=== PATIENT | female | born 1940 | race Caucasian/White ===

== ENCOUNTER → 2018-02-20 16:31 | Outpatient (CLI) | payer MEDICARE, OTHER, SELFPAY ==
--- NOTE | 2018-02-20 | DI.MRI.S_ITS ---
PROCEDURE: MR CERVICAL SPINE WO CON INDICATIONS: Bialteral hand numbness TECHNIQUE: Noncontrast sagittal T1 spin echo and T2 fast spin echo, sagittal STIR, foraminal oblique sagittal T2 fast spin echo, and axial gradient echo or T2 fast spin echo through the cervical spine. COMPARISON: [facility], MR, T-SPINE WITHOUT CONTRAST, 03/08/2016, 16:38. [facility], RG, XR C-SPINE 2-3V, 12/10/2004, 11:31. FINDINGS: Image quality: Excellent. Alignment and Curvature: There is normal bony alignment. Bone Marrow: Marrow demonstrates normal overall signal. Spinal Cord: Visualized spinal cord has normal size and signal. No cerebellar tonsillar herniation. Paraspinous Soft Tissues: No paravertebral masses. Prevertebral soft tissues are normal in thickness. C2-C3: Mild disc desiccation with preserved disc height. No central canal or foraminal stenosis. C3-C4: Mild loss of disc height and disc desiccation. There is diffuse posterior disc bulge and uncovertebral hypertrophy. Moderate bilateral facet arthropathy. The central canal is patent. Severe right foraminal stenosis. No left foraminal stenosis. C4-C5: Mild loss of disc height and disc desiccation. There is mild posterior disc bulge. Moderate bilateral facet arthropathy. The central canal is patent. Mild bilateral foraminal stenosis. C5-C6: Preserved disc height. Mild disc desiccation. There is mild posterior disc bulge and disc osteophyte complex. Moderate left and mild right facet arthropathy. The central canal is patent. Mild bilateral foraminal stenosis. C6-C7: Preserved disc height. Mild disc desiccation. There is mild posterior disc bulge and disc osteophyte complex and uncovertebral hypertrophy. Mild bilateral facet arthropathy. The central canal is patent. No foraminal stenosis. C7-T1: Normal appearance. IMPRESSION: 1. Multilevel degenerative disc disease and facet arthropathy as described. 2. No significant central canal stenosis. 3. Multilevel foraminal stenosis as described, severe at C3-C4 on the right. Dictated by: Elham Lambert M.D. on 02/21/2018 at 10:03 Approved by: Elham Lambert M.D. on 02/21/2018 at 18:07
== END ==
PROVIDERS: Family Provider Nurse Practitioner Family; PCP Nurse Practitioner Family; Visit Provider Physical Medicine & Rehabilitation
DX: M50.31 Other cervical disc degeneration, high cervical region (principal); M48.02 Spinal stenosis, cervical region; R20.0 Anesthesia of skin
CPT/HCPCS: 72141

== ENCOUNTER → 2018-03-09 14:38 | Outpatient (CLI) | payer MEDICARE, OTHER, SELFPAY | PROVIDERS: Family Provider Nurse Practitioner Family; PCP Nurse Practitioner Family; Visit Provider Nurse Practitioner Family | DX: M85.88 Other specified disorders of bone density and structure, other site (principal); Z78.0 Asymptomatic menopausal state; E07.9 Disorder of thyroid, unspecified; Z87.891 Personal history of nicotine dependence; Z90.722 Acquired absence of ovaries, bilateral | CPT/HCPCS: 77080 ==

== ENCOUNTER → 2019-05-14 10:32 | Outpatient (CLI) | payer MEDICARE, OTHER, SELFPAY ==
--- NOTE | 2019-05-14 | DI.US.S_ITS ---
PROCEDURE: US CAROTID DOPPLER BI INDICATIONS: DIZZINESS AND GIDDINESS TECHNIQUE: Color and pulse Doppler interrogation was performed of both carotid systems, with image documentation and velocity measurements. COMPARISON: [facility], , CAROTID ARTERY DOPPLER BILAT, 07/19/2016, 10:23. FINDINGS: Stenosis calculations are based on SRU (Society of Radiologists in Ultrasound) criteria. Right side: Brachial blood pressure: 135/71 mm Hg. Common carotid artery peak systolic velocity: 97 cm/sec. Internal carotid artery peak systolic velocity: 103 cm/sec. Internal carotid artery end diastolic velocity: 44 cm/sec. External carotid artery peak systolic velocity: 72 cm/sec. ICA/CCA peak systolic ratio: 1.1. Hurtado scale imaging description: Minimal scattered plaque. Percent internal carotid artery stenosis: Less than 50%. Vertebral artery: Flow direction is antegrade. Left side: Brachial blood pressure: 130/71 mm Hg. Common carotid artery peak systolic velocity: 78 cm/sec. Internal carotid artery peak systolic velocity: 111 cm/sec. Internal carotid artery end diastolic velocity: 47 cm/sec. External carotid artery peak systolic velocity: 54 cm/sec. ICA/CCA peak systolic ratio: 1.4. Hurtado scale imaging description: Minimal scattered plaque. Percent internal carotid artery stenosis: Less than 50%. Vertebral artery: Flow direction is antegrade. IMPRESSION: Stable less than 50% bilateral internal carotid artery stenosis. Dictated by: Vamsi Morel [facility] Interpreted: Lito Spicer MD on 05/14/2019 at 12:28 Approved by: Lito Spicer M.D. on 05/14/2019 at 13:32
== END ==
PROVIDERS: PCP Nurse Practitioner Family; Visit Provider Nurse Practitioner Family
DX: R42 Dizziness and giddiness (principal); I65.23 Occlusion and stenosis of bilateral carotid arteries
CPT/HCPCS: 93880

== ENCOUNTER → 2020-03-06 14:09 | Outpatient (CLI) | payer MEDICARE, OTHER, SELFPAY | PROVIDERS: PCP Internal Medicine; Referring Provider Internal Medicine; Visit Provider Internal Medicine | DX: M81.0 Age-related osteoporosis without current pathological fracture (principal); Z78.0 Asymptomatic menopausal state; E07.9 Disorder of thyroid, unspecified; Z90.722 Acquired absence of ovaries, bilateral | CPT/HCPCS: 77080 ==

== ENCOUNTER → 2020-03-24 08:05 | Outpatient (CLI) | payer MEDICARE, OTHER, SELFPAY ==
--- NOTE | 2020-03-24 | DI.MG.S_ITS ---
BILATERAL DIGITAL SCREENING MAMMOGRAM 3D/2D WITH CAD: 03/24/2020 CLINICAL: Routine screening. Family history of breast cancer. Comparison is made to exams dated: 01/15/2016 mammogram - [facility], 12/21/2011 mammogram, 04/18/2009 mammogram, 04/14/2007 mammogram - [facility], and 01/22/2016 mammogram - [facility]. The tissue of both breasts is heterogeneously dense. This may lower the sensitivity of mammography. Current study was also evaluated with a Computer Aided Detection (CAD) system. No significant masses, calcifications, or other findings are seen in either breast. There has been no significant interval change. IMPRESSION: NEGATIVE There is no mammographic evidence of malignancy. A 1 year screening mammogram is recommended. This exam was interpreted at Station ID: [id number]. NOTE: For mammograms, a report in lay terms will be sent to the patient. Approximately 15% of breast malignancies will not be visualized mammographically. In the management of a palpable breast mass, a negative mammogram must not discourage biopsy of a clinically suspicious lesion. Electronically Signed By: Wilfrid flores/zackery:03/24/2020 17:25:23 letter sent: Normal Exam ACR BI-RADS Category 1: Negative [id number]
== END ==
PROVIDERS: PCP Internal Medicine; Referring Provider Internal Medicine; Visit Provider Internal Medicine
DX: Z12.31 Encounter for screening mammogram for malignant neoplasm of breast (principal); Z80.3 Family history of malignant neoplasm of breast
CPT/HCPCS: 77063; 77067

== ENCOUNTER → 2023-01-29 11:03 | Outpatient (CLI) | payer MEDICARE, OTHER, SELFPAY ==
--- NOTE | 2023-01-29 11:22 | DI.MRI.S_ITS ---
PROCEDURE: MR HIP LT WO CON INDICATIONS: Pain in left hip TECHNIQUE: Noncontrast coronal T1 spin echo and STIR through the bony pelvis. Coronal and axial T2 fast spin echo with fat saturation, sagittal T1 spin echo, and oblique axial T2 fast spin echo with fat saturation through the hip. COMPARISON: None. FINDINGS: Image quality: Excellent. Bones and joints: Bone marrow of the pelvic ring and proximal femurs show normal signal throughout. No intraosseous lesions or fractures. No avascular necrosis of the femoral heads. Degenerative disc disease and facet hypertrophy as well scoliotic curvature is seen in the included lumbar spine. Mild degenerative changes at the pubic symphysis. Tendons and ligaments: Fluid signal intensity is seen along the posterior left gluteus minimus and anterior gluteus medius tendons near their insertion onto the greater trochanter with associated trochanteric and subgluteal bursal effusions. Findings are superimposed on chronic tendinosis. Mild intramuscular edema is seen within the left gluteus minimus and medius muscles. The proximal iliotibial band appears intact. The iliopsoas tendon appears intact, without adjacent bursal fluid collections. The origin of the hamstring tendon is intact at the ischial tuberosity. The direct and indirect heads of the rectus femoris muscle origin appear intact. Labrum and cartilage: There is diffuse labral degeneration and chronic degenerative tearing. Mild partial-thickness cartilage irregularity is seen in the superior to posterior hip. There is normal morphology of the femoral head and the acetabulum. Soft tissues: Visualized muscles demonstrate normal bulk and internal signal. Quadratus femoris muscle demonstrates no internal edema to suggest ischiofemoral impingement. The proximal sciatic neurovascular bundle appears intact. Status post hysterectomy. The included portions of the pelvis demonstrate no acute abnormality. IMPRESSION: 1. Moderate partial tearing of the distal left gluteus minimus and medius tendons near their insertions onto the greater trochanter with associated trochanteric and subgluteal bursal effusions. 2. Mild edema within the gluteus medius and minimus muscles is consistent with superimposed low-grade strains. 3. 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 Mild diffuse labral degeneration and chronic degenerative tearing. Approved by: Olman Raymond M.D. on 01/31/2023 at 10:46
== END ==
PROVIDERS: PCP Internal Medicine; Referring Provider Physical Medicine & Rehabilitation Pain Medicine; Visit Provider Physical Medicine & Rehabilitation Pain Medicine
DX: M54.16 Radiculopathy, lumbar region (principal); S76.312A Strain of muscle, fascia and tendon of the posterior muscle group at thigh level, left thigh, initial encounter; S73.102A Unspecified sprain of left hip, initial encounter; M25.552 Pain in left hip; M94.252 Chondromalacia, left hip
CPT/HCPCS: 73721

== ENCOUNTER → 2023-03-25 10:13 | Outpatient (CLI) | payer MEDICARE, OTHER, SELFPAY ==
--- NOTE | 2023-03-25 10:15 | DI.US.S_ITS ---
PROCEDURE: US ABDOMEN COMPLETE INDICATIONS: GENERALIZED ABDOMINAL PAIN TECHNIQUE: Real-time scanning was performed of the abdominal and retroperitoneal organs, with image documentation. COMPARISON: [facility], US, ABDOMEN COMPLETE, 09/27/2006, 8:30. FINDINGS: Liver: Liver is normal in size and homogeneous in echotexture. Gallbladder: The gallbladder is normal without stones, sludge, wall thickening, or pericholecystic fluid. Biliary ducts: Intrahepatic bile ducts are non-dilated. Extrahepatic bile duct caliber measures 3.9 mm. Normal is 6-7 mm or less in diameter, or 10 mm or less post-cholecystectomy. Pancreas: Visualized portions of the pancreas are sonographically normal. Spleen: Spleen is normal in size and homogeneous in echotexture. Kidneys: Kidneys are normal in size and echotexture. Mild prominence of renal sinus fat. Right kidney measures 9.6 cm long; left kidney is suboptimally seen due to lack of good acoustic window. No hydronephrosis or nephrolithiasis. No solid masses. Aorta: Visualized aorta is normal in caliber at less than 3 cm. Iliacs: Proximal common iliac arteries are normal in caliber at less than 2.5 cm. IVC: Intrahepatic inferior vena cava is patent. Miscellaneous: No free abdominal fluid. IMPRESSION: 1. Decreased visualization of the left kidney in spleen due to lack of good acoustic window. 2. Mild prominence of the renal sinus fat bilaterally may indicate mild cortical thinning versus senescent changes. No other sonographic sign of renal pathology. 3. Normal gallbladder. Dictated by: Camelia Lockett M.D. on 03/25/2023 at 15:55 Approved by: Camelia Lockett M.D. on 03/25/2023 at 15:58
== END ==
PROVIDERS: PCP Internal Medicine; Referring Provider Internal Medicine; Visit Provider Internal Medicine
DX: R10.84 Generalized abdominal pain (principal); R19.7 Diarrhea, unspecified
CPT/HCPCS: 76700

== ENCOUNTER → 2023-07-20 08:44 | Outpatient (CLI) | payer MEDICARE, OTHER, SELFPAY ==
--- NOTE | 2023-07-20 | DI.US.S_ITS ---
PROCEDURE: US CAROTID DOPPLER BI INDICATIONS: Occlusion and stenosis of unspecified carotid artery TECHNIQUE: Color and pulse Doppler interrogation was performed of both carotid systems, with image documentation and velocity measurements. COMPARISON: [facility], , US CAROTID DOPPLER BI, 05/14/2019, 11:02. FINDINGS: Stenosis calculations are based on SRU (Society of Radiologists in Ultrasound) criteria. Right side: Brachial blood pressure: 155/79 mm Hg. Common carotid artery peak systolic velocity: 53 cm/sec. Internal carotid artery peak systolic velocity: 60 cm/sec. Internal carotid artery end diastolic velocity: 25 cm/sec. External carotid artery peak systolic velocity: 56 cm/sec. ICA/CCA peak systolic ratio: 1.1. Hurtado scale imaging description: There is mild atheromatous plaque at the bulb. Percent internal carotid artery stenosis: Less than 50% stenosis. Vertebral artery: Flow direction is antegrade. Left side: Brachial blood pressure: 158/75 mm Hg. Common carotid artery peak systolic velocity: 65 cm/sec. Internal carotid artery peak systolic velocity: 84 cm/sec. Internal carotid artery end diastolic velocity: 33 cm/sec. External carotid artery peak systolic velocity: 44 cm/sec. ICA/CCA peak systolic ratio: 1.3 . Hurtado scale imaging description: No atheromatous plaque or calcification. Percent internal carotid artery stenosis: No stenosis. Vertebral artery: Flow direction is antegrade. IMPRESSION: 1. Less than 50% stenosis the right carotid artery. 2. No stenosis of the left internal carotid artery. Dictated by: Miranda Hartman M.D. on 07/20/2023 at 9:30 Approved by: Miranda Hartman M.D. on 07/20/2023 at 9:34
== END ==
PROVIDERS: PCP Internal Medicine; Referring Provider Internal Medicine; Visit Provider Internal Medicine
DX: I65.21 Occlusion and stenosis of right carotid artery (principal)
CPT/HCPCS: 93880

== ENCOUNTER → 2023-12-28 12:28 | Outpatient (CLI) | payer MEDICARE, OTHER, SELFPAY ==
--- NOTE | 2023-12-28 12:34 | DI.MRI.S_ITS ---
PROCEDURE: MR LUMBAR SPINE WO CON INDICATIONS: Other specified spondylopathies, lumbar region TECHNIQUE: Noncontrast sagittal T1 spin echo and T2 fast echo, sagittal STIR, and T2 fast spin echo through the lumbar spine. In cases with scoliosis, additional coronal T2 fast spin echo may be performed. COMPARISON: [facility], , L-SPINE WITHOUT CONTRAST, 03/08/2016, 17:02. FINDINGS: Image quality: Excellent. Alignment and Curvature: Dextroscoliotic curvature of the lumbar spine. Right lateral listhesis of L3 on L4. Straightening of the normal lumbar lordosis. Bone Marrow: Degenerative endplate changes, most pronounced at L4-5. Marrow is of normal overall signal. No acute vertebral body compression fractures. Spinal Cord: Conus medullaris terminates at the L1 level. Visualized cord demonstrates normal signal and size. Paraspinous Soft Tissues: No paravertebral masses. T12-L1: Disc desiccation and height loss. No central canal or neural foraminal stenosis. L1-L2: Disc desiccation and mild disc bulge. Facet arthropathy. No central canal or neural foraminal stenosis. L2-L3: Disc desiccation and height loss. Posterior disc bulge. Facet arthropathy. Stable mild central canal stenosis. Stable mild bilateral neural foraminal stenosis. L3-L4: Disc desiccation and height loss. Facet arthropathy. Thickening of ligamentum flavum. Stable mild central canal stenosis. Stable mild bilateral neural foraminal stenosis. L4-L5: Severe disc desiccation and height loss. Facet arthropathy and thickening of ligamentum flavum. No significant central canal stenosis. Stable moderate right and mild left neural foraminal stenosis. L5-S1: Disc desiccation and height loss. Posterior disc bulge. Small disc extrusion appears decreased compared to prior. Small posterior annular tear. Facet arthropathy and thickening ligamentum flavum. Stable mild central canal stenosis. No significant neural foraminal stenosis. IMPRESSION: 1. Overall similar appearance of degenerative changes of the lumbar spine with dextroscoliotic curvature. 2. Mild multilevel central canal stenosis. 3. Moderate right neural foraminal stenosis at L4-5. Mild multilevel neural foraminal stenosis at other levels. Dictated by: Ori Blanca M.D. on 12/28/2023 at 15:51 Approved by: Ori Blanca M.D. on 12/28/2023 at 15:58
== END ==
PROVIDERS: PCP Internal Medicine; Referring Provider Internal Medicine; Visit Provider Internal Medicine
DX: M48.8X6 Other specified spondylopathies, lumbar region (principal); M47.816 Spondylosis without myelopathy or radiculopathy, lumbar region; M47.817 Spondylosis without myelopathy or radiculopathy, lumbosacral region; M48.061 Spinal stenosis, lumbar region without neurogenic claudication; M48.07 Spinal stenosis, lumbosacral region; M51.36 Other intervertebral disc degeneration, lumbar region; M53.3 Sacrococcygeal disorders, not elsewhere classified; G89.29 Other chronic pain
CPT/HCPCS: 72148

== ENCOUNTER 2025-01-05 07:03 | Emergency (ER) | payer MEDICARE, OTHER, SELFPAY ==
[2025-01-05] VITALS (13 sets, daily range): BP systolic 167–200; BP diastolic 72–91; PULSE 59–92; RESP 18–20; TEMP 36.6; O2SAT 81–99; BMI 21.4
--- NOTE | 2025-01-05 07:41 | ED.ABDPAIN ---
HPI - Abdominal Pain General Chief Complaint: Abdominal Pain Stated Complaint: Constipated in pain x3 days Time Seen by Provider: 01/05/25 07:24 Source: patient Mode of arrival: Ambulatory History of Present Illness HPI narrative: 84-year-old female history of hypertension atrial fibrillation seen most recently at [facility] for a pit bull attack resulting in ulna fracture on pain medicine presents with abdominal pain and constipation last bowel movement was Tuesday despite taking 3 suppositories last night unable to have a bowel movement at this time secondary to pain medicine given for fracture. Patient denies fever chills chest pain shortness of breath but does feel nauseous but no vomiting or diarrhea or blood in the stools or urine. Other than what is stated 14 point review of system is negative Related Data Home Medications ?Medication ?Instructions ?Recorded ?Confirmed apixaban 5 mg tablet (Eliquis) 5 mg PO BID 01/03/25 01/03/25 atorvastatin 20 mg tablet (Lipitor) 20 mg PO DAILY 01/03/25 01/03/25 gabapentin 300 mg capsule 300 mg PO DAILY 01/03/25 01/03/25 levothyroxine 50 mcg capsule 50 mcg PO DAILY 01/03/25 01/03/25 metoprolol succinate 25 mg 25 mg PO DAILY 01/03/25 01/03/25 tablet,extended release 24 hr midodrine 5 mg tablet 5 mg PO TID 01/03/25 01/03/25 pantoprazole 40 mg tablet,delayed 40 mg PO DAILY 01/03/25 01/03/25 release telmisartan 20 mg tablet (Micardis) 20 mg PO DAILY 01/03/25 01/03/25 Previous Rx's ?Medication ?Instructions ?Recorded lactulose 10 gram/15 mL oral 10 g (15 mL) PO DAILY PRN 01/05/25 solution constipation #473 mL Allergies Allergy/AdvReac Type Severity Reaction Status Date / Time codeine Allergy Unknown NAUSEA Verified 01/05/25 08:22 Review of Systems Review of Systems ROS Unobtainable: All systems reviewed & are unremarkable except as noted in HPI and below Patient History Social History Smoking Status: Never smoker Smoking Status: Never smoker Exam Narrative Exam Narrative: GENERAL: [84] year old patient appears stated age. Well-developed patient, in mild distress. HEAD: Atraumatic. Normocephalic. EYES: Pupils equal round and reactive. Extraocular motions intact. No scleral icterus. No injection or drainage. GASTROINTESTINAL: Abdomen soft, non-tender, nondistended. Rectal: no external hemorrhoids seen or fissure but stool in the rectal vault manually disimpacted EXTREMITIES: No edema or joint tenderness. BACK: Nontender without deformity or crepitance. No flank tenderness. NEURO: AOx3. SKIN: No rash or erythema of visible areas Initial Vital Signs Initial Vital Signs: Vital Signs Pulse Rate 91 H 01/05/25 07:18 Pulse Oximetry 98 01/05/25 07:18 Course Orders Ordered: ED Orders 01/05/25 07:15 Complete Blood Count AUTO DIFF Stat Comprehensive Metabolic Panel Stat Lipase Stat EKG-12 Lead Stat 01/05/25 08:54 CT abdomen pelvis wo con Stat Ondansetron HCl (Ondansetron 4 Mg/2 Ml Inj) 4 mg IV NOW PRN PRN Reason: Nausea And Vomiting Ondansetron HCl (Ondansetron 4 Mg Odt) 4 mg PO NOW PRN PRN Reason: Nausea And Vomiting Discontinued Medications Sodium Biphosphate/Sodium Phosphate (Fleets Enema) 1 each TX NOW ONE Stop: 01/05/25 07:50 Last Admin: 01/05/25 08:23 Dose: 1 each Documented By: MELISSA Sodium Biphosphate/Sodium Phosphate (Fleets Enema) 1 each TX NOW ONE Stop: 01/05/25 10:29 Last Admin: 01/05/25 11:18 Dose: 1 each Documented By: MELISSA Vital Signs Vital signs: Vital Signs - 8 hr 01/05/25 07:18 01/05/25 07:19 01/05/25 07:30 Temperature 97.8 F Pulse Rate 91 H 92 H Respiratory Rate 20 Blood Pressure 184/79 H 195/81 H Pulse Oximetry 98 98 Oxygen Delivery Method Room Air 01/05/25 07:30 01/05/25 09:18 01/05/25 09:30 Temperature Pulse Rate 85 85 81 Respiratory Rate Blood Pressure Pulse Oximetry 97 97 99 Oxygen Delivery Method 01/05/25 09:30 01/05/25 09:46 01/05/25 09:46 Temperature Pulse Rate 83 Respiratory Rate Blood Pressure 200/91 H 167/72 H Pulse Oximetry 98 Oxygen Delivery Method MDM - Abdominal Pain Imaging Data CT scan - abdomen/pelvis: Radiologist's Impression: [address] [address] [address] Scan Report Signed Patient: Vannesa Contreras MR#: [id number] : 1940 Acct:[id number] Age/Sex: 84 / F Date of Service: 01/05/25 Loc: ED Accession Number: [id number] Procedure: CT abdomen pelvis wo con Ordering Provider: Adryan Morales D.O. PROCEDURE: CT ABDOMEN PELVIS WO CON INDICATIONS: abd pain constipation TECHNIQUE: After the administration of oral contrast, 5 mm thick sections acquired from the diaphragms to the symphysis. 5 mm coronal and sagittal reformats were performed. For radiation dose reduction, the following was used: automated exposure control, adjustment of mA and/or kV according to patient size. COMPARISON: None. FINDINGS: Image quality: Diagnostic. Lower Chest: No significant findings. ABDOMEN: Liver: No contour-deforming mass. Left renal cyst Gallbladder: No radiopaque gallstones or wall thickening. Biliary ducts: No biliary dilation. Pancreas: No ductal dilation. Spleen: Size is within normal limits. Adrenal Glands: No adrenal nodules. Kidneys and Ureters: No hydronephrosis. No contour-deforming mass. Stomach and Bowel: Large fecal bolus in the rectum with upstream fecal retention and perirectal edema Peritoneum: No abnormal intraperitoneal fluid. No free air. Ventral Wall: No significant hernia. Abdominal Nodes: No retroperitoneal or mesenteric adenopathy by size criteria. Vessels: Aorta and inferior vena cava are normal in size. PELVIS: Pelvic Organs: Unremarkable. Bladder: Unremarkable. Pelvic Nodes: No enlarged lymph nodes. Miscellaneous: No inguinal hernias are seen. Bones: Convex right thoracolumbar scoliosis IMPRESSION: Large fecal bolus in the rectum associated with perirectal edema upstream fecal retention MDM Narrative Medical decision making narrative: All lab work, vital signs, nurse triage note, medication list, previous ER visits, and all imaging reviewed. CT scan showed a large fecal bolus in the rectum associated with perirectal edema upstream fecal retention. patient had several bowel movements since enemas were given and feels much better on reexamination. Patient will be discharged on lactulose as needed for constipation. Differential diagnosis includes fecal impaction, constipation, UTI, small-bowel obstruction. Discharge Plan Departure Patient Disposition: Home Clinical Impression: Constipation Instructions: DI for Constipation Activity Restrictions/Additional Instructions: Return with new or worsening symptoms. Take your medicines as directed. Keep hydrated. Follow up with PCP next week if no improvement in symptoms Prescriptions: New lactulose 10 gram/15 mL solution 10 g PO DAILY PRN (Reason: constipation) Qty: 473 0RF No Action atorvastatin [Lipitor] 20 mg tablet 20 mg PO DAILY midodrine 5 mg tablet 5 mg PO TID Rx Instructions: do not give last dose of day after 6PM or within 4 hrs of bedtime pantoprazole 40 mg tablet,delayed release (DR/EC) 40 mg PO DAILY gabapentin 300 mg capsule 300 mg PO DAILY telmisartan [Micardis] 20 mg tablet 20 mg PO DAILY metoprolol succinate 25 mg tablet extended release 24 hr 25 mg PO DAILY levothyroxine 50 mcg capsule 50 mcg PO DAILY Eliquis 5 mg tablet 5 mg PO BID Referrals: Rayna Paris ARNP [Primary Care Provider, Family Practice] Stand Alone Forms: Patient Portal/API
[2025-01-05] MEDS: FLEETS ENEMA 1 EACH PR ×2 (08:23→11:18)
--- NOTE | 2025-01-05 08:54 | DI.CT.S_ITS ---
PROCEDURE: CT ABDOMEN PELVIS WO CON INDICATIONS: abd pain constipation TECHNIQUE: After the administration of oral contrast, 5 mm thick sections acquired from the diaphragms to the symphysis. 5 mm coronal and sagittal reformats were performed. For radiation dose reduction, the following was used: automated exposure control, adjustment of mA and/or kV according to patient size. COMPARISON: None. FINDINGS: Image quality: Diagnostic. Lower Chest: No significant findings. ABDOMEN: Liver: No contour-deforming mass. Left renal cyst Gallbladder: No radiopaque gallstones or wall thickening. Biliary ducts: No biliary dilation. Pancreas: No ductal dilation. Spleen: Size is within normal limits. Adrenal Glands: No adrenal nodules. Kidneys and Ureters: No hydronephrosis. No contour-deforming mass. Stomach and Bowel: Large fecal bolus in the rectum with upstream fecal retention and perirectal edema Peritoneum: No abnormal intraperitoneal fluid. No free air. Ventral Wall: No significant hernia. Abdominal Nodes: No retroperitoneal or mesenteric adenopathy by size criteria. Vessels: Aorta and inferior vena cava are normal in size. PELVIS: Pelvic Organs: Unremarkable. Bladder: Unremarkable. Pelvic Nodes: No enlarged lymph nodes. Miscellaneous: No inguinal hernias are seen. Bones: Convex right thoracolumbar scoliosis IMPRESSION: Large fecal bolus in the rectum associated with perirectal edema upstream fecal retention Approved by: Papo Lugo M.D. on 01/05/2025 at 9:00
--- NOTE | 2025-01-05 12:03 | PC.NURSE ---
patient states she didn't take her blood pressure meds this morning but will when she gets home.
== END 2025-01-05 12:04 | disposition home or self-care (01) ==
PROVIDERS: Emergency Provider Family Medicine; PCP Registered Nurse
DX: K59.00 Constipation, unspecified (principal)
CPT/HCPCS: 74176; 99282; 99284

== ENCOUNTER → 2025-04-19 15:27 | Outpatient (CLI) | payer MEDICARE, OTHER, SELFPAY ==
--- NOTE | 2025-04-19 15:32 | DI.MRI.S_ITS ---
PROCEDURE: MR WRIST RT WO CON INDICATIONS: nerve damage TECHNIQUE: Noncontrast coronal proton density fast spin echo and T2 fast spin echo with fat saturation; coronal 3-D gradient echo, axial T1 spin echo and T2 fast spin echo with fat saturation, sagittal T1 spin echo through the wrist. COMPARISON: [facility], MR, MR FOREARM RT WO CON, 04/19/2025, 16:32. [facility], CR, XR WRIST RT MIN 3V, 02/05/2025, 10:35. FINDINGS: Image quality: Excellent. Bones and cartilage: The carpal bones are normally aligned. 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 There are large peripheral osteophytes. Capsular degeneration scarring of the thumb carpometacarpal joint and triscaphe joint capsule. Chronic, nonunited distal ulnar diaphyseal fracture with less than 1/2 shaft width displacement. This fracture is better evaluated on same-day MRI forearm. Please see that report for further description of the fracture. No evidence for avascular necrosis. Scattered articular cartilage loss in the intercarpal joints with areas of full-thickness articular cartilage loss in the index carpometacarpal joint. Carpal ligaments: Chronic degeneration and scarring of the membranous and volar bands of the scapholunate ligament. There is attenuation of the dorsal band of the scapholunate ligament. Scarring of the lunotriquetral ligament without acute tear. Increased dorsal rotation and tilt of the lunate. Triangular fibrocartilage complex: Full-thickness perforation of the central articular disc. Scarring of the foveal and styloid laminae. Degeneration of the meniscus homologue. Tendons and soft tissues: The carpal tunnel structures appear normal, including the median nerve. No increased signal or focal thickening of the median nerve within or distal to the carpal tunnel. The ulnar nerve appears normal within Guyon's canal. All six extensor tendon compartments demonstrate normal morphology, without pathologic tendon sheath fluid. No soft tissue ganglion cysts. Moderate atrophy and fatty infiltration of the thenar musculature with diffuse muscular edema within the opponens pollicis, flexor pollicis brevis, and abductor pollicis brevis concerning for a denervation injury (8/7). The hypo thenar eminence musculature is intact. Abductor pollicis is intact. The interossei muscles are intact. IMPRESSION: 1. Atrophy and diffuse muscular edema within the thenar eminence is concerning for a denervation injury of the recurrent median nerve. No focal lesion of the median nerve within the carpal tunnel. 2. 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 3. 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 4. Full-thickness perforation of the articular disc of the triangular fibrocartilage complex. 5. Partially visualized chronic fracture of the distal ulnar diaphysis, which is better evaluated on same-day MRI forearm. Dictated by: Jasbir Thomas M.D. on 04/22/2025 at 10:19 Approved by: Jasbir Thomas M.D. on 04/22/2025 at 10:59
--- NOTE | 2025-04-19 15:32 | DI.MRI.S_ITS ---
PROCEDURE: MR FOREARM RT WO CON INDICATIONS: Nerve damage TECHNIQUE: Noncontrast coronal and sagittal T1 spin echo and STIR; axial T1 spin echo and T2 fast spin echo with fat saturation through the right forearm. COMPARISON: [facility] Facility, CR, XR WRIST RT MIN 3V, 12/20/2024, 21:29. [facility], CR, XR FOREARM RT 2V, 02/21/2025, 10:56. FINDINGS: Image quality: Diagnostic Bones: No suspicious marrow replacing process. Chronic, oblique, 1/2 shaft with, 5 mm, ulnarly displaced transverse fracture of the distal ulnar diaphysis with partially surrounding callus. No radial fracture. Small joint effusion with areas of deep to full-thickness articular cartilage loss in the radiocapitellar joint. Soft tissues: Mild atrophy and diffuse muscular edema of pronator teres, the radial muscle bellies of flexor digitorum superficialis and profundus, the pronator quadratus, flexor pollicis longus, and flexor radialis longus within the forearm. Extensor carpi ulnaris and the ulnar aspect of flexor digitorum profundus and superficialis are relatively spared. Subcutaneous fat defect along the mid to distal volar forearm. No soft tissue masses are present. Neurovascular: Increased signal within the median nerve from the proximal 3rd of the forearm to the proximal carpal tunnel (series 7, image 27). Normal appearance of the ulnar nerve. Normal appearance of the radial nerve. IMPRESSION: 1. 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 Recommend correlation with EMG. 2. No focal discontinuity of the visualized median nerve within the forearm. 3. Chronic, nonunited, transverse, minimally displaced fracture of the distal ulnar diaphysis. Dictated by: Jasbir Thomas M.D. on 04/22/2025 at 11:00 Approved by: Jasbir Thomas M.D. on 04/22/2025 at 11:19
== END ==
PROVIDERS: Family Provider Registered Nurse; PCP Registered Nurse; Visit Provider Plastic Surgery
DX: G56.11 Other lesions of median nerve, right upper limb (principal); M18.11 Unilateral primary osteoarthritis of first carpometacarpal joint, right hand; M19.031 Primary osteoarthritis, right wrist; S52.691S Other fracture of lower end of right ulna, sequela
CPT/HCPCS: 73218; 73221